=== PATIENT | female | born 1935 | race African-American/Black ===

== ENCOUNTER 2017-02-28 16:40 | Inpatient (IN) ==
--- NOTE | 2017-02-28 17:23 | Emergency Department Note ---
Shawn Moore Brooke, am scribing for, and in the presence of, Elvia Granda DO 17:19 . IJesus Alberto Debra, DO, personally performed the services described in this documentation, ascribed by Dolores Escobar in my presence, and it is both accurate and complete 723 . Arrival - Arrival Chief Complaint: Non-Specific ED Nursing Triage Note: pt has sz since having a cva. pt had an epi of unresponsive per family. pt gokul has diarrhea Mode of Arrival: Stretcher Limitations: No Limitations Source: Patient, Family (Daughter), RN Notes Reviewed Time Seen by Provider: 02/28/17 17:03 - History of Present Illness HPI Narrative: Patient is a 81 year old female, brought into the ED by her Daughter, with c/o being unresponsive today. Patient is a poor historian. Daughter says Patient has not been able to focus, she has been "staring off," and has been drowsey. Patient was here Thursday being treated for a right tibia fracture and was diagnosed with a kidney infection. She was prescribed abx and has had diarrhea since yesterday and it is described as "water." Daughter denies Patient having any fever or vomiting. Patient has PMHx of Afib, HTN, depression, CVA, NIDDM, RA , bronchitis, and GERD. Her last CVA was December 07, 2016. Allergies/Adverse Reactions: Allergies Allergy/AdvReac Type Severity Reaction Status Date / Time aspirin Allergy Mild Gastrointestinal Verified 05/30/15 08:36 Upset codeine AdvReac Mild Dizziness Verified 05/30/15 08:36 Home Medications: Home Medications Medication Instructions Recorded Confirmed Type Cetirizine Tab [ZyrTEC Tab] 10 mg PO QAM 05/29/15 01/18/17 History FLUoxetine [PROzac] 20 mg PO QAM 05/29/15 01/18/17 History Furosemide Tab [Lasix Tab] 80 mg PO 1200 05/29/15 01/18/17 History Meclizine [Antivert] 12.5 mg PO TID PRN 05/29/15 01/18/17 History Methocarbamol 500 mg PO Q8H PRN 05/29/15 01/18/17 History Pantoprazole Tab [Protonix Tab] 40 mg PO BID 05/29/15 01/18/17 History Potassium Chloride [Klor-Con M20] 20 meq PO 1200 05/29/15 01/18/17 History Apixaban [Eliquis] 2.5 mg PO BID 01/18/17 01/18/17 History Aspirin EC Tab 81 mg PO QAM 01/18/17 01/18/17 History Atorvastatin Calcium 20 mg PO QAM 01/18/17 01/18/17 History Ferrous Sulfate Tab [Feosol 325 mg PO BID 01/18/17 01/18/17 History Original Tab] Levothyroxine Tab [Synthroid Tab] 75 mcg PO DAILY@0700 01/18/17 01/18/17 History cephALEXin [Keflex] 500 mg PO Q12HR #14 capsule 01/18/17 Rx levETIRAcetam [Levetiracetam] 750 mg PO BID 01/18/17 01/18/17 History Review of System - Review of System ROS unobtainable: due to mental status - Review of System Constitutional: Absent: fever Respiratory: Absent: respiratory distress Gastrointestinal: Present: diarrhea (water). Absent: vomiting Skin: Absent: rash Neurological: Present: other ("unresponsive, can't focus, staring off, drowsy") Medical,Surgical,& Family Hx - Medical History Cardio: History of: Cardiac Dysrhythmia (A-FIB), Hypertension Psychological: History of: Depression Neurology: History of: Cerebrovascular Accident No history of: Seizures HEENT: History of: Eye Problem (CATARACTS) Endocrine: History of: Diabetes Mellitus (NIDDM) (DIET CONTROLLED) Rheumatology: History of;: Rheumatoid Arthritis Respiratory: History of: Bronchitis Gastrointestinal: History of: GERD - Surgical History Cardiac Surgeries: Sugical HX of: Cardiac Catheterization Abdominal Surgeries: Surgical HX of: Appendectomy, Colonoscopy, EGD Reproductive Surgeries: Surgical HX of;: Tubal Ligation - Social History Smoking Status: Unknown if ever smoked Frequency of Alcohol Use: None Type of Drug Use: None Exam Vital Signs: Vital Signs Temperature 97.3 F L 02/28/17 16:45 Pulse Rate 75 02/28/17 16:45 Respiratory Rate 18 02/28/17 16:45 Blood Pressure 108/81 02/28/17 16:45 O2 Sat by Pulse Oximetry 97 02/28/17 16:45 - General General appearance: alert, in no apparent distress, obese, other (smells of stool. Not responding to questions- Normal for Patient.) - Head Head exam: Present: atraumatic, normocephalic - Eye Eye exam: Present: normal appearance, PERRL, EOMI - ENT ENT exam: Present: normal exam - Neck Neck exam: Present: normal inspection - Chest Chest inspection: Present: normal inspection, symmetric chest wall rise - Respiratory Respiratory exam: Present: normal lung sounds bilaterally - Cardiovascular Cardiovascular exam: Present: regular rate, normal rhythm, normal heart sounds - Abdominal Exam Abdominal exam: Present: soft, normal bowel sounds. Absent: distention, tenderness - Extremities Exam Extremities exam: Present: other (Right leg splint) - Back Exam Back exam: Present: normal inspection - Neurological Exam Neurological exam: Present: alert, oriented X3 - Psychiatric Psychiatric exam: Present: normal affect, normal mood - Skin Skin exam: Present: warm, dry, intact, normal color
[2017-02-28] MEDS: SODIUM CHLORIDE 0.9% 1,000 ML IV SCH (18:15)
[2017-02-28 18:37] LABS: Basophils % 0.3 % (0.0-0.8); Eosinophils # 0.4 10*3/uL (0.0-0.87); Eosinophils % 5.1 % (0.00-10.9); Hematocrit 28.5 VOL% (35.7-47.0); Hemoglobin 9.7 GM/DL (12.0-16.0); Immature Granulocytes % 0.7 %; Immature Granulocytes Absolute 0.05 #; Lymphocytes # 1.7 10*3/uL (1.4-4.0); Lymphocytes % 23.5 % (21.3-54.2); Mean Corpuscular Hemoglobin 31 PG (27-34); Mean Corpuscular Volume 91.1 FL (87-102); Mean Platelet Volume 8.4 FL (9.6-12.0); Monocytes # 0.8 10*3/uL (0.11-0.8); Monocytes % 10.7 % (1.7-12.7); Neutrophils # 4.3 10*3/uL (1.4-7.4); Neutrophils % 59.7 % (38.7-73.9); Platelet Count 248 T/CUMM (130-400); Red Blood Count 3.13 MC/CUMM (3.8-5.5); Red Cell Distribution Width 13.6 % (9.3-17.3); White Blood Count 7.2 T/CUMM (4-12)
[2017-02-28 18:43] LABS: Apearance,Urine Slightly Hazy (Clear); Bacteria,Urine Many /HPF (Few); Bilirubin,Urine Negative (Negative); Blood, Urine Moderate mg/dL (Negative); Glucose,Urine (UA) Negative (Negative); Ketones,Urine Negative (Negative); Mucus,Urine Occasional /LPF (Occasional); Nitrite,Urine Negative (Negative); Protein,Urine Negative; RBC,Urine 1 /HPF (0-4); Urine Color Yellow (Yellow); Urine Specific Gravity 1.002 (1.001-1.035); Urine Urobilinogen < 2.0 EU/DL (0.2-1.0); WBC,Urine 15 /HPF (0-6)
[2017-02-28 18:57] LABS: Albumin 2.8 G/DL (3.4-5.0); Bilirubin,Total 0.4 MG/DL (0.2-1.0); Calcium 8.9 MG/DL (8.5-10.1); Osmolality,Calculated 265.7 MOS/KG (273-304); Potassium 3.9 MMOL/L (3.5-5.1); Total Protein 6.9 G/DL (6.4-8.3)
--- NOTE | 2017-02-28 20:42 | Hospitalist History & Physical ---
Assessment and Plan (1) Antibiotic-associated diarrhea Status: Acute Assessment and plan: The patient is admitted to the hospital with antibiotic associated diarrhea. The patient was treated with oral vancomycin, oral Flagyl, and intravenous ampicillin. Will obtain urine culture and stool culture with C. difficile test. Current Visit: Yes (2) Tibial fracture Status: Acute Current Visit: No History of Present Illness Chief complaint: Altered mental status and lethargy History of present illness: Ms. Estrada is a 81 year old female with history of stroke in the spring 2016. The patient is bedridden and at home. She has a chronic indwelling Strauss catheter. She has been treated several times with antibiotics over the last several months due to pyuria. She was prescribed Keflex several days ago when she arrived to the emergency room on account of right fibula fracture. The patient has a splint on the right lower extremity due to the fracture. Beginning 2 days ago the patient's family noticed that she became increasingly lethargic and had diarrhea which was foul-smelling. The patient's diarrhea has been associated with diaphoresis. The patient does not complain of shortness of breath or chest pain. The patient is admitted to the hospital for volume depletion and evaluation of diarrhea. Home Medications Medication Instructions Recorded Confirmed Type Cetirizine Tab [ZyrTEC Tab] 10 mg PO QAM 05/29/15 02/28/17 History FLUoxetine [PROzac] 20 mg PO QAM 05/29/15 02/28/17 History Furosemide Tab [Lasix Tab] 80 mg PO 1200 05/29/15 02/28/17 History Pantoprazole Tab [Protonix Tab] 40 mg PO BID 05/29/15 02/28/17 History Potassium Chloride [Klor-Con M20] 20 meq PO 1200 05/29/15 02/28/17 History Apixaban [Eliquis] 2.5 mg PO BID 01/18/17 02/28/17 History Aspirin EC Tab 81 mg PO QAM 01/18/17 02/28/17 History Atorvastatin Calcium 20 mg PO QAM 01/18/17 02/28/17 History Ferrous Sulfate Tab [Feosol 325 mg PO BID 01/18/17 02/28/17 History Original Tab] Levothyroxine Tab [Synthroid Tab] 75 mcg PO DAILY@0700 06/04/17 07/15/17 History Ergocalciferol [Drisdol] 50,000 unit PO TH 02/28/17 02/28/17 History levETIRAcetam [Levetiracetam] 1,000 mg PO BID 02/28/17 02/28/17 History Allergies Allergy/AdvReac Type Severity Reaction Status Date / Time aspirin Allergy Mild Gastrointestinal Verified 05/30/15 08:36 Upset codeine AdvReac Mild Dizziness Verified 05/30/15 08:36 Medical,Surgical,& Family Hx - Medical History Cardio: History of: Cardiac Dysrhythmia (A-FIB), Hypertension Psychological: History of: Depression Neurology: History of: Cerebrovascular Accident No history of: Seizures HEENT: History of: Eye Problem (CATARACTS) Endocrine: History of: Diabetes Mellitus (NIDDM) (DIET CONTROLLED) Rheumatology: History of;: Rheumatoid Arthritis Respiratory: History of: Bronchitis Genitourinary: History of: Recurring Urinary Tract Infections Gastrointestinal: History of: GERD - Surgical History Cardiac Surgeries: Sugical HX of: Cardiac Catheterization Abdominal Surgeries: Surgical HX of: Appendectomy, Colonoscopy, EGD Reproductive Surgeries: Surgical HX of;: Tubal Ligation - Social History Smoking Status: Unknown if ever smoked Frequency of Alcohol Use: None Type of Drug Use: None Marital Status: Single Lives With:: Children Functional capacity: bed bound 12 point system: reviewed and no additional remarkable complaints except as stated Exam - Constitutional Vitals: Period Temp Pulse Resp BP Sys/French Pulse Ox Last 24 Hr 97.3 F-97.3 F 75-75 18-18 108-108/81-81 97 Exam: Constitutional System: Mild distress. No tremulousness. Lethargic and mildly diaphoretic Head: Normocephalic, atraumatic. Ears, Nose and Throat System: No evidence of Otitis or Mastoiditis. No epistaxis or discharge Eyes System: Pupils equal, round, and reactive. Extraocular muscles intact. Neck: Supple, without adenopathy, No jugular venous distention. No thyromegaly , neck mass, or prior surgery apparent. Respiratory System: Chest clear to auscultation. Cardiovascular System: Heart with regular rate and rhythm. No murmur. GI System: Abdomen soft, nontender. Normo active bowel sounds present. Musculoskeletal System: limbs with no pedal edema. Full distal pulses. Splint in place on the right lower extremity Psychiatric System: Conversation is consistent with expressive aphasia Results - Labs CBC & BMP: 02/28/17 18:25 02/28/17 18:25 Lab Results: I have reviewed the past 24 hour labs Labs: The patient has urine with 5 white blood cells per high-powered field consistent with partially treated urinary tract infection in a patient with chronic indwelling Strauss catheter.
[2017-02-28] MEDS ORDERED: ONDANSETRON 4 MG/2 ML VIAL IV PRN (21:15)
[2017-02-28] MEDS: levETIRAcetam 500 MG TABLET PO SCH (23:15)
[2017-02-28] MEDS: PANTOPRAZOLE 40 MG TABLET PO SCH (23:15)
[2017-02-28] MEDS: APIXABAN 2.5 MG TABLET PO SCH (23:16)
[2017-02-28] MEDS: metroNIDAZOLE 250 MG TABLET PO SCH (23:16)
[2017-02-28] MEDS: AMPICILLIN INJ 500 MG in SODIUM CHLORIDE 0.9% 100 ML IV SCH (23:16)
[2017-02-28] MEDS: FERROUS SULFATE 325 MG TABLET PO SCH (23:16)
[2017-03-01] MEDS: VANCOMYCIN 50 MG/ML 60 ML/BOTTLE PO SCH ×4 (03:24→17:41)
[2017-03-01 05:06] LABS: Basophils % 0.5 % (0.0-0.8); Eosinophils # 0.3 10*3/uL (0.0-0.87); Eosinophils % 4.5 % (0.00-10.9); Hematocrit 28.2 VOL% (35.7-47.0); Hemoglobin 9.4 GM/DL (12.0-16.0); Immature Granulocytes % 0.7 %; Immature Granulocytes Absolute 0.04 #; Lymphocytes # 1.4 10*3/uL (1.4-4.0); Lymphocytes % 23.4 % (21.3-54.2); Mean Corpuscular HGB Conc 33.3 GM/DL (32-36); Mean Corpuscular Hemoglobin 31 PG (27-34); Mean Corpuscular Volume 91.9 FL (87-102); Mean Platelet Volume 8.5 FL (9.6-12.0); Monocytes # 0.8 10*3/uL (0.11-0.8); Monocytes % 14.2 % (1.7-12.7); Neutrophils # 3.3 10*3/uL (1.4-7.4); Neutrophils % 56.7 % (38.7-73.9); Platelet Count 235 T/CUMM (130-400); Red Blood Count 3.07 MC/CUMM (3.8-5.5); Red Cell Distribution Width 13.4 % (9.3-17.3); White Blood Count 5.8 T/CUMM (4-12)
[2017-03-01 05:46] LABS: Blood Urea Nitrogen 21 MG/DL (7-18); Calcium 8.6 MG/DL (8.5-10.1); Glucose 93 MG/DL (74-106); Magnesium 2.1 MG/DL (1.8-2.4); Osmolality,Calculated 272.1 MOS/KG (273-304); Potassium 4.3 MMOL/L (3.5-5.1); Sodium 135 MMOL/L (136-145); Troponin I Only < 0.015 NG/ML (0.00-0.045)
[2017-03-01] MEDS: AMPICILLIN INJ 500 MG in SODIUM CHLORIDE 0.9% 100 ML IV SCH ×4 (05:46→22:05)
[2017-03-01] MEDS: metroNIDAZOLE 250 MG TABLET PO SCH ×3 (05:47→22:05)
[2017-03-01] MEDS: LEVOTHYROXINE 75 MCG TABLET PO SCH (06:33)
[2017-03-01] MEDS: SODIUM CHLORIDE 0.9% 1,000 ML IV SCH ×2 (07:14→14:44)
[2017-03-01] MEDS: ASPIRIN EC 81 MG TABLET PO SCH (09:44)
[2017-03-01] MEDS: FERROUS SULFATE 325 MG TABLET PO SCH ×2 (09:44→20:42)
[2017-03-01] MEDS: ATORVASTATIN 20 MG TABLET PO SCH (09:44)
[2017-03-01] MEDS: FLUoxetine 20 MG CAPSULE PO SCH (09:44)
[2017-03-01] MEDS: CETIRIZINE 10 MG TABLET PO SCH (09:44)
[2017-03-01] MEDS: APIXABAN 2.5 MG TABLET PO SCH ×2 (09:44→20:41)
[2017-03-01] MEDS: PANTOPRAZOLE 40 MG TABLET PO SCH ×2 (09:45→20:41)
[2017-03-01] MEDS: levETIRAcetam 500 MG TABLET PO SCH ×2 (09:45→20:41)
[2017-03-01] MEDS: POTASSIUM CHLORIDE 20 MEQ TABLET PO SCH (13:05)
--- NOTE | 2017-03-01 14:46 | Hospitalist Progress Note ---
Assessment and Plan (1) UTI (urinary tract infection) Status: Acute Assessment and plan: Follow-up urine culture. Continue ampicillin. Current Visit: Yes Qualifiers: Urinary tract infection type: acute cystitis (2) Tibial fracture Status: Acute Current Visit: Yes Qualifiers: Encounter type: initial encounter Tibia location: proximal Laterality: right (3) History of stroke Status: Chronic Current Visit: Yes (4) Antibiotic-associated diarrhea Status: Acute Assessment and plan: Follow-up stool studies. Continue oral Flagyl and vancomycin. Current Visit: Yes Hospitalist: Subjective Interval history: Patient seen and examined. No acute events overnight. Case discussed with nursing staff. Labs reviewed. Daughters at the bedside at the time of my evaluation. They report 1 episode of liquid watery stool prior to admission. She is having loose bowel movements that are soft but not watery at this time. No distinctive odor of Clostridium difficile toxin. Stool cultures and stool studies pending. Receiving antibiotics for urinary tract infection. Recent diagnosis of right tibial fracture. Exam - Constitutional Vitals: Period Temp Pulse Resp BP Sys/French Pulse Ox Last 24 Hr 97.3 F-98.5 F 75-83 16-20 108-124/56-81 94-98 Exam: Constitutional System: No distress. No tremulousness. Minimally interactive. Head: Normocephalic, atraumatic. Ears, Nose and Throat System: No pain or tenderness. No epistaxis or discharge Eyes System: Pupils equal, round, and reactive. Extraocular muscles intact. Neck: Supple, without adenopathy, No jugular venous distention. Respiratory System: Chest clear to auscultation. Cardiovascular System: Heart with regular rate and rhythm. No murmur. GI System: Abdomen soft, nontender. Normo active bowel sounds present. Musculoskeletal System: limbs with no pedal edema. Full distal pulses. Splint in place on the right lower extremity Psychiatric System: Conversation is consistent with expressive aphasia Results - Labs CBC & BMP: 03/01/17 04:43 03/01/17 04:43 Lab Results: I have reviewed the past 24 hour labs Quality Measures - VTE Contraindication to Pharmacological VTE Prophylaxis: Already on Theraputic Agent , No Prophylaxis Needed
[2017-03-01] MEDS: DESITIN 4OZ/NYSTATIN 15 GRAM MIXTURE PASTE TOP SCH (20:42)
[2017-03-02] MEDS: SODIUM CHLORIDE 0.9% 1,000 ML IV SCH ×2 (01:32→14:15)
[2017-03-02] MEDS: VANCOMYCIN 50 MG/ML 60 ML/BOTTLE PO SCH ×2 (01:32→06:05)
[2017-03-02] MEDS: AMPICILLIN INJ 500 MG in SODIUM CHLORIDE 0.9% 100 ML IV SCH ×4 (04:17→21:43)
[2017-03-02] MEDS: LEVOTHYROXINE 75 MCG TABLET PO SCH (06:05)
[2017-03-02] MEDS: metroNIDAZOLE 250 MG TABLET PO SCH (06:05)
[2017-03-02 08:03] LABS: Basophils % 0.6 % (0.0-0.8); Eosinophils # 0.3 10*3/uL (0.0-0.87); Eosinophils % 4.2 % (0.00-10.9); Hematocrit 28.6 VOL% (35.7-47.0); Hemoglobin 9.4 GM/DL (12.0-16.0); Immature Granulocytes % 0.5 %; Immature Granulocytes Absolute 0.03 #; Lymphocytes # 1.5 10*3/uL (1.4-4.0); Lymphocytes % 23.8 % (21.3-54.2); Mean Corpuscular HGB Conc 32.9 GM/DL (32-36); Mean Corpuscular Hemoglobin 30 PG (27-34); Mean Corpuscular Volume 92.6 FL (87-102); Mean Platelet Volume 8.4 FL (9.6-12.0); Monocytes # 0.7 10*3/uL (0.11-0.8); Monocytes % 10.5 % (1.7-12.7); Neutrophils # 3.8 10*3/uL (1.4-7.4); Neutrophils % 60.4 % (38.7-73.9); Platelet Count 239 T/CUMM (130-400); Red Blood Count 3.09 MC/CUMM (3.8-5.5); Red Cell Distribution Width 13.6 % (9.3-17.3); White Blood Count 6.2 T/CUMM (4-12)
--- NOTE | 2017-03-02 08:20 | XRay Report ---
History: Diarrhea Date: 03/02/2017 Study: KUB Comparison exam: No previous The bowel is pattern is nonspecific without evidence of taylor obstruction or gross mass lesion. Some occasional air filled loops of normal caliber large and small bowel are seen. No radiopaque calculi are seen. There is osteopenia and mild lumbar spondylosis. Impression: Nonspecific bowel gas pattern PROCEDURE INTERPRETED AT [facility] DEPARTMENT OF RADIOLOGY Final Report Signed by: Dr. Belkis Jeronimo
[2017-03-02 08:44] LABS: Calcium 8.6 MG/DL (8.5-10.1); Osmolality,Calculated 271.1 MOS/KG (273-304)
[2017-03-02] MEDS: DESITIN 4OZ/NYSTATIN 15 GRAM MIXTURE PASTE TOP SCH ×2 (09:50→21:44)
[2017-03-02] MEDS: FERROUS SULFATE 325 MG TABLET PO SCH ×2 (09:51→21:43)
[2017-03-02] MEDS: levETIRAcetam 500 MG TABLET PO SCH ×2 (09:51→21:43)
[2017-03-02] MEDS: CETIRIZINE 10 MG TABLET PO SCH (09:51)
[2017-03-02] MEDS: ATORVASTATIN 20 MG TABLET PO SCH (09:51)
[2017-03-02] MEDS: ASPIRIN EC 81 MG TABLET PO SCH (09:52)
[2017-03-02] MEDS: APIXABAN 2.5 MG TABLET PO SCH ×2 (09:52→21:43)
[2017-03-02] MEDS: PANTOPRAZOLE 40 MG TABLET PO SCH ×2 (09:58→21:43)
[2017-03-02] MEDS: FLUoxetine 20 MG CAPSULE PO SCH (09:58)
[2017-03-02] MEDS: POTASSIUM CHLORIDE 20 MEQ TABLET PO SCH (11:37)
--- NOTE | 2017-03-02 12:31 | Hospitalist Progress Note ---
Assessment and Plan (1) UTI (urinary tract infection) Status: Acute Assessment and plan: Follow-up urine culture. Continue ampicillin. Current Visit: Yes Qualifiers: Urinary tract infection type: acute cystitis (2) Tibial fracture Status: Acute Assessment and plan: Consult orthopedics.-Patient's family requests Dr. Brendan Alcantara Current Visit: Yes Qualifiers: Encounter type: initial encounter Tibia location: proximal Laterality: right (3) History of stroke Status: Chronic Current Visit: Yes (4) Antibiotic-associated diarrhea Status: Ruled-out Assessment and plan: Stool studies negative. Discontinue Vanco and Flagyl. Current Visit: Yes Hospitalist: Subjective Interval history: Patient seen and examined. No acute events overnight. Case discussed with nursing staff. Labs reviewed. Daughter at the bedside. We discussed discontinuing the Strauss catheter to lessen her recurrence of urinary tract infections. Patient is historically incontinent for many years. We are waiting final culture results. Preliminary cultures show 2 different gram- negative rods in the urine. Stools have been negative for C. difficile and white blood cells. I have discontinued vancomycin and Flagyl. A KUB does not show any obstruction or fecal impaction. Exam - Constitutional Vitals: Period Temp Pulse Resp BP Sys/French Pulse Ox Last 24 Hr 97.6 F-99.3 F 71-94 18-23 102-137/56-71 92-98 Exam: Constitutional System: No distress. No tremulousness. Minimally interactive. Head: Normocephalic, atraumatic. Ears, Nose and Throat System: No pain or tenderness. No epistaxis or discharge Eyes System: Pupils equal, round, and reactive. Extraocular muscles intact. Neck: Supple, without adenopathy, No jugular venous distention. Respiratory System: Chest clear to auscultation. Cardiovascular System: Heart with regular rate and rhythm. No murmur. GI System: Abdomen soft, nontender. Normo active bowel sounds present. Musculoskeletal System: limbs with no pedal edema. Full distal pulses. Splint in place on the right lower extremity Psychiatric System: Conversation is consistent with expressive aphasia Results - Labs CBC & BMP: 03/02/17 07:10 03/02/17 07:10 Lab Results: I have reviewed the past 24 hour labs (2004) Quality Measures - VTE Contraindication to Pharmacological VTE Prophylaxis: Already on Theraputic Agent , No Prophylaxis Needed
[2017-03-03] MEDS: AMPICILLIN INJ 500 MG in SODIUM CHLORIDE 0.9% 100 ML IV SCH ×2 (03:36→11:01)
[2017-03-03] MEDS: LEVOTHYROXINE 75 MCG TABLET PO SCH (06:07)
[2017-03-03] MEDS: ATORVASTATIN 20 MG TABLET PO SCH (10:32)
[2017-03-03] MEDS: ASPIRIN EC 81 MG TABLET PO SCH (10:32)
[2017-03-03] MEDS: levETIRAcetam 500 MG TABLET PO SCH (10:33)
[2017-03-03] MEDS: FLUoxetine 20 MG CAPSULE PO SCH (10:33)
[2017-03-03] MEDS: FERROUS SULFATE 325 MG TABLET PO SCH (10:33)
[2017-03-03] MEDS: CETIRIZINE 10 MG TABLET PO SCH (10:33)
[2017-03-03] MEDS: PANTOPRAZOLE 40 MG TABLET PO SCH (10:33)
[2017-03-03] MEDS: APIXABAN 2.5 MG TABLET PO SCH (10:33)
[2017-03-03] MEDS: DESITIN 4OZ/NYSTATIN 15 GRAM MIXTURE PASTE TOP SCH (11:02)
[2017-03-03] MEDS: POTASSIUM CHLORIDE 20 MEQ TABLET PO SCH (11:05)
--- NOTE | 2017-03-03 11:57 | Discharge Summary ---
Hospital Course - Hospital Course Hospital Course: 81-year-old black female admitted to the hospital with urinary tract infection. Cultures grew Klebsiella pneumonia and Pseudomonas aurginosa both sensitive to ciprofloxacin. The patient has been afebrile since admission. She was having diarrhea when she came to the hospital. Stool studies have been negative for C. difficile and white blood cells. Fiber supplement was added to her diet. Mental status was at baseline throughout the hospitalization. She has reached maximal benefit from this inpatient hospitalization and is being discharged home in the care of her family to continue ciprofloxacin for a period of 10 more days. The patient is bedbound and has a chronic indwelling Strauss catheter. I discussed this with the patient's daughter at the bedside. She refused to have the catheter removed. The patient had suffered a tibial fracture prior to this hospitalization. She had not followed up with orthopedics since that acute fracture. A consultation was placed for orthopedic surgery during hospitalization at the patient's family 's request. - Time spent with patient Time with patient DS: Greater than 30 minutes (Total discharge time for this patient, including [id number] time, clinical documentation, medication reconciliation, and discharge planning was 38 minutes.) Diagnosis - Discharge Diagnosis (1) UTI (urinary tract infection) Status: Acute (2) Tibial fracture Status: Acute (3) History of stroke Status: Chronic (4) Antibiotic-associated diarrhea Status: Ruled-out Discharge Plan - Discharge Data Disposition: Home Health Service Condition at Discharge: Stable Discharge Diet: advance to your usual diet Contact your physician if you experience:: fever over 101, Redness or swelling, Nausea/Vomiting - Discharge Medications New Ciprofloxacin Liquid [Cipro Susp] 500 mg PO Q12HR #100 ml Continue Cetirizine Tab [ZyrTEC Tab] 10 mg PO QAM Pantoprazole Tab [Protonix Tab] 40 mg PO BID FLUoxetine [PROzac] 20 mg PO QAM Furosemide Tab [Lasix Tab] 80 mg PO 1200 Potassium Chloride [Klor-Con M20] 20 meq PO 1200 Apixaban [Eliquis] 2.5 mg PO BID Levothyroxine Tab [Synthroid Tab] 75 mcg PO DAILY@0700 Ferrous Sulfate Tab [Feosol Original Tab] 325 mg PO BID Aspirin EC Tab 81 mg PO QAM Ergocalciferol [Drisdol] 50,000 unit PO TH levETIRAcetam [Levetiracetam] 1,000 mg PO BID Atorvastatin Calcium 20 mg PO QAM - Follow Up or Referral - Forms/Instructions Additional Discharge Instructions: Follow-up with primary care physician in 1-2 weeks. Follow-up with orthopedic surgeon Exam - Constitutional Vitals: Period Temp Pulse Resp BP Sys/French Pulse Ox Last 24 Hr 97.4 F-100.0 F 81-107 18-20 101-125/55-74 96-98 Discharge Results Procedures and tests throughout hospitalization: Pending Orders 03/03/17 11:35 XR tibia fibula RT Stat Labs on day of discharge: Labs from last 24 hours 03/03/17 03/03/17 03/02/17 11:24 07:44 21:45 POC Glucose 114 H 117 H 137 H 03/02/17 03/02/17 16:35 11:33 POC Glucose 153 H 116 H DS: Provider Date of admission: 02/28/17 19:37 Primary care physician: . No PCP Attending physician on admission: Kj Yun MD Consults: 03/02/17 12:22 Consult to Physician [CONS] Routine Comment: right tibia fracture Consulting Provider: César aCrdona Jr. Person Notified: ANGELIA Date Notified: 03/02/17 Time Notified: 12:33 Discharging clinician: Re Holloway MD Expected date of discharge: 03/03/17
[2017-03-03] MEDS ORDERED: CIPROFLOXACIN 100 MG/ML 100 ML/BOTTLE PO SCH (12:00)
--- NOTE | 2017-03-03 12:13 | XRay Report ---
History is status post cast placement proximal tibia fracture on the right Right lower leg, 2 views There is been interval cast placement partially obscuring bony detail There is diffuse somewhat patchy demineralization A oblique fracture of the proximal tibial metaphysis with 2 mm of displacement of fracture site again seen. Vascular calcifications present with degenerative changes at the knee Impression: Interval cast placement across proximal tibia fracture PROCEDURE INTERPRETED AT [facility] DEPARTMENT OF RADIOLOGY Final Report Signed by: Dr. Angelita Romeo
--- NOTE | 2017-03-03 15:43 | Orthopedic Consult Note ---
History of Present Illness Chief complaint: Right proximal tibia fracture History of present illness: Ms. Estrada is a 81 year old female who is been admitted to the medical service for diarrhea she has a history of a proximal tibia fracture when she injured her well over a week ago. X-rays from the nursing center where she resides have been sent to our office and recommendations for treatment has been given over the phone currently on admission x-ray new x-rays have been obtained of right proximal tibia fracture not been asked to evaluate patient is essentially nonverbal as had a previous stroke and does not ambulate. Most of the history is obtained from her daughter who is present Exam confirms a obese black female she again is nonverbal she will not actively flex or extend the toes of well-padded posterior splint is in place she appears comfortable no obvious pain or discomfort about the left lower or either upper extremity X-rays confirm a well aligned minimally displaced proximal tibia fracture right. Impression: right proximal tibia fracture Plan: The splint will be removed today and a knee immobilizer will be placed. I believe this will provide adequate protection and support for the fracture site and avoid any any issues with respect to pressure sores on the heel will also allow nursing care nursing care to perform appropriate hygiene inspection of her skin any skin changes. Will mobile x-ray follow-up in about 3 weeks Home Medications Medication Instructions Recorded Confirmed Type Cetirizine Tab [ZyrTEC Tab] 10 mg PO QAM 05/29/15 02/28/17 History FLUoxetine [PROzac] 20 mg PO QAM 05/29/15 02/28/17 History Furosemide Tab [Lasix Tab] 80 mg PO 1200 05/29/15 02/28/17 History Pantoprazole Tab [Protonix Tab] 40 mg PO BID 05/29/15 02/28/17 History Potassium Chloride [Klor-Con M20] 20 meq PO 1200 05/29/15 02/28/17 History Apixaban [Eliquis] 2.5 mg PO BID 01/18/17 02/28/17 History Aspirin EC Tab 81 mg PO QAM 01/18/17 02/28/17 History Atorvastatin Calcium 20 mg PO QAM 01/18/17 02/28/17 History Ferrous Sulfate Tab [Feosol 325 mg PO BID 01/18/17 02/28/17 History Original Tab] Levothyroxine Tab [Synthroid Tab] 75 mcg PO DAILY@0700 01/18/17 02/28/17 History Ergocalciferol [Drisdol] 50,000 unit PO TH 02/28/17 02/28/17 History levETIRAcetam [Levetiracetam] 1,000 mg PO BID 02/28/17 02/28/17 History Ciprofloxacin Liquid [Cipro Susp] 500 mg PO Q12HR #100 ml 03/03/17 Rx Allergies Allergy/AdvReac Type Severity Reaction Status Date / Time aspirin Allergy Mild Gastrointestinal Verified 05/30/15 08:36 Upset codeine AdvReac Mild Dizziness Verified 05/30/15 08:36 Medical,Surgical,& Family Hx - Medical History Cardio: History of: Cardiac Dysrhythmia (A-FIB), Hypertension Psychological: History of: Depression Neurology: History of: Cerebrovascular Accident No history of: Seizures HEENT: History of: Eye Problem (CATARACTS) Endocrine: History of: Diabetes Mellitus (NIDDM) (DIET CONTROLLED) Rheumatology: History of;: Rheumatoid Arthritis Respiratory: History of: Bronchitis Genitourinary: History of: Recurring Urinary Tract Infections Gastrointestinal: History of: GERD Musculoskeletal: No history of: Amputation - Surgical History Cardiac Surgeries: Sugical HX of: Cardiac Catheterization Thoracic Surgeries: Patient denies;: Organ Transplant Neurologic Surgeries: Patient denies: Neurologic Surgery Abdominal Surgeries: Surgical HX of: Appendectomy, Colonoscopy, EGD Reproductive Surgeries: Surgical HX of;: Tubal Ligation - Social History Smoking Status: Unknown if ever smoked Frequency of Alcohol Use: None Type of Drug Use: None Exam - Constitutional Vitals: Period Temp Pulse Resp BP Sys/French Pulse Ox Last 24 Hr 97.4 F-100.0 F 63-107 18-20 101-130/55-74 97-98 Results - Labs CBC & BMP: 03/02/17 07:10 03/02/17 07:10
[2017-03-03 16:03] VITALS: BP 129/60
[2017-03-05] MEDS ORDERED: ERGOCALCIFEROL 50,000 UNIT CAPSULE PO SCH (09:00)
--- NOTE | 2017-03-09 15:26 | Physician Query Form ---
CLICK EDIT DOCUMENT TO SELECT QUERY ANSWER --> OK --> SIGN Leela Matos RN Clinical Utility Porter W) [phone] (f) [phone] [email or web address]: Make your selection(s) from the choices in EACH section by typing an "x" and enter comments in the comment section. Please use your independent medical judgment in providing your response. This request does not imply that any particular answer is desired or expected. CLINICAL INDICATORS: (Providers should not edit this section) Based on documentation of "She has a chronic indwelling rogel catheter. She has been treated several times with antibiotics over the last several months due to pyuria. She was prescribed Keflex several days ago" "Acute UTI" Treated with IV Ampicillin. Based on the above, could you clarify the appropriate diagnosis, if significant , that supports the above abnormalities and additional evaluation, monitoring, and/or treatment rendered: (X ) Acute UTI Due to Indwelling Catheter ( ) Acute UTI NOT Due to Indwelling Catheter ( X) Other, please specify: Present prior to admission. ( ) Clinically unable to determine COMMENTS: PLEASE ALSO DOCUMENT RESPONSE IN PROGRESS NOTES AND/OR DISCHARGE SUMMARY Use of terms such as suspected, likely, or probable (associated with a specific diagnosis that is being evaluated, monitored, or treated as if it exists) are acceptable and can be restated in the discharge summary if not ruled out. MTDD
== END 2017-03-03 16:40 | disposition home health service (06) | DRG 699 ==
LOC: EDBD → EDUNIT# → N.ED 16:40 → SUATTDRO 19:37 → N.EDINP 19:37 → N.TELEN 20:51 → N.2E 03-01 12:19
PROVIDERS: ADMIT Internal Medicine; ATTEND Family Medicine

== ENCOUNTER 2018-02-12 15:59 | Inpatient (IN) ==
[2018-02-12] MEDS ORDERED: SODIUM CHLORIDE 0.9% 1,000 ML IV STA (16:58)
[2018-02-12 18:00] LABS: Basophils % 0.3 % (0.0-0.8); Eosinophils # 0.1 10*3/uL (0.0-0.87); Eosinophils % 2.1 % (0.00-10.9); Hematocrit 33.3 VOL% (35.7-47.0); Hemoglobin 11.2 GM/DL (12.0-16.0); Immature Granulocytes % 0.5 %; Immature Granulocytes Absolute 0.03 #; Lymphocytes # 2.2 10*3/uL (1.4-4.0); Lymphocytes % 37.3 % (21.3-54.2); Mean Corpuscular HGB Conc 33.6 GM/DL (32-36); Mean Corpuscular Hemoglobin 31 PG (27-34); Mean Corpuscular Volume 91.5 FL (87-102); Mean Platelet Volume 8.5 FL (9.6-12.0); Monocytes # 0.7 10*3/uL (0.11-0.8); Monocytes % 11.8 % (1.7-12.7); Neutrophils # 2.8 10*3/uL (1.4-7.4); Platelet Count 171 T/CUMM (130-400); Red Blood Count 3.64 MC/CUMM (3.8-5.5); Red Cell Distribution Width 12.9 % (9.3-17.3); White Blood Count 5.8 T/CUMM (4-12)
[2018-02-12 18:07] LABS: Apearance,Urine CLEAR (Clear); Bacteria,Urine Occasional /HPF (Few); Bilirubin,Urine Negative (Negative); Blood, Urine Moderate mg/dL (Negative); Glucose,Urine (UA) Negative (Negative); Ketones,Urine Negative (Negative); Nitrite,Urine Negative (Negative); Protein,Urine Negative; RBC,Urine 2 /HPF (0-4); Squamous Epithelial Cell,Urine Occasional /HPF (0-10); Urine Color Straw (Yellow); Urine Specific Gravity 1.002 (1.001-1.035); Urine Urobilinogen < 2.0 EU/DL (0.2-1.0); WBC,Urine 2 /HPF (0-6)
[2018-02-12 18:28] LABS: Alanine Aminotransferase 17 U/L (13-56); Albumin 2.5 G/DL (3.4-5.0); Alkaline Phosphatase 99 U/L (45-117); Aspartate Amino Transferase 19 U/L (0-37); Bilirubin,Indirect 0.3 MG/DL (0.0-1.0); Bilirubin,Total < 0.39 MG/DL (0.2-1.0); Blood Urea Nitrogen 15 MG/DL (7-18); Calcium 8.8 MG/DL (8.5-10.1); Glucose 87 MG/DL (74-106); Osmolality,Calculated 254.2 MOS/KG (273-304); Potassium 4.2 MMOL/L (3.5-5.1); Sodium 127 MMOL/L (136-145); Total Protein 7.1 G/DL (6.4-8.3)
[2018-02-12] MEDS ORDERED: ONDANSETRON 4 MG/2 ML VIAL IV PRN (23:15)
[2018-02-12] MEDS ORDERED: FERROUS SULFATE 325 MG TABLET PO SCH (23:15)
[2018-02-12] MEDS ORDERED: PROMETHAZINE 25 MG/1 ML VIAL IM PRN (23:15)
[2018-02-12] MEDS ORDERED: ACETAMINOPHEN 325 MG TABLET PO PRN (23:15)
[2018-02-12 23:41] LABS: Troponin I Only < 0.015 NG/ML (0.00-0.045)
[2018-02-13] MEDS: levETIRAcetam 500 MG TABLET PO SCH ×3 (00:05→20:43)
[2018-02-13] MEDS: CIPROFLOXACIN 500 MG TABLET PO SCH ×3 (00:05→20:44)
[2018-02-13] MEDS: APIXABAN 2.5 MG TABLET PO SCH ×3 (00:05→20:43)
[2018-02-13 01:16] LABS: Calcium 9.5 MG/DL (8.5-10.1); Osmolality,Calculated 265.4 MOS/KG (273-304); Potassium 3.8 MMOL/L (3.5-5.1)
[2018-02-13 01:22] LABS: Albumin 2.8 G/DL (3.4-5.0); Bilirubin,Total 0.5 MG/DL (0.2-1.0); Calcium 9.4 MG/DL (8.5-10.1); Osmolality,Calculated 266.4 MOS/KG (273-304); Potassium 3.8 MMOL/L (3.5-5.1); Risk Ratio 1.88; Total Protein 7.7 G/DL (6.4-8.3); VLDL CHOLESTEROL 9.8 MG/DL
[2018-02-13] MEDS: DOCUSATE SODIUM 100 MG CAPSULE PO SCH ×4 (01:55→20:48)
[2018-02-13] MEDS ORDERED: SODIUM CHLORIDE 0.9% 1,000 ML IV SCH (02:00)
[2018-02-13] MEDS: LEVOTHYROXINE 75 MCG TABLET PO SCH (06:14)
[2018-02-13] MEDS: FERROUS SULFATE 325 MG TABLET PO SCH ×2 (06:14→18:00)
[2018-02-13] MEDS: ASPIRIN EC 81 MG TABLET PO SCH (09:16)
[2018-02-13] MEDS: ATORVASTATIN 20 MG TABLET PO SCH (09:16)
[2018-02-13] MEDS: FLUoxetine 20 MG CAPSULE PO SCH (09:17)
[2018-02-13] MEDS: CETIRIZINE 10 MG TABLET PO SCH (09:18)
[2018-02-13] MEDS: NON-FORMULARY MEDICATION (Ergocalciferol (Vitamin D2) [Vitamin D2] 2,000 UNIT) PO SCH (10:42)
[2018-02-13] MEDS ORDERED: POTASSIUM CHLORIDE 20 MEQ TABLET PO SCH (12:00)
[2018-02-13] MEDS ORDERED: FUROSEMIDE 80 MG TABLET PO SCH (12:00)
[2018-02-14] MEDS: LEVOTHYROXINE 75 MCG TABLET PO SCH (05:58)
[2018-02-14] MEDS: FERROUS SULFATE 325 MG TABLET PO SCH (05:58)
[2018-02-14 07:58] VITALS: BP 108/65
[2018-02-14] MEDS: FLUoxetine 20 MG CAPSULE PO SCH (09:14)
[2018-02-14] MEDS: ASPIRIN EC 81 MG TABLET PO SCH (09:14)
[2018-02-14] MEDS: CIPROFLOXACIN 500 MG TABLET PO SCH (09:14)
[2018-02-14] MEDS: DOCUSATE SODIUM 100 MG CAPSULE PO SCH (09:14)
[2018-02-14] MEDS: levETIRAcetam 500 MG TABLET PO SCH (09:14)
[2018-02-14] MEDS: CETIRIZINE 10 MG TABLET PO SCH (09:15)
[2018-02-14] MEDS: ATORVASTATIN 20 MG TABLET PO SCH (09:15)
[2018-02-14] MEDS: APIXABAN 2.5 MG TABLET PO SCH (09:15)
[2018-02-14] MEDS: NON-FORMULARY MEDICATION (Ergocalciferol (Vitamin D2) [Vitamin D2] 2,000 UNIT) PO SCH (10:39)
[2018-02-14] MEDS ORDERED: FUROSEMIDE 80 MG TABLET PO SCH (12:00)
== END 2018-02-14 12:15 | disposition home health service (06) | DRG 641 ==
LOC: EDBD → EDUNIT# → N.ED 15:59 → N.EDINP 20:13 → SUATTDRO 20:13 → N.4E 22:21
PROVIDERS: ADMIT Internal Medicine; ATTEND Hospitalist